=== PATIENT | female | born 1965 | race Caucasian/White ===

== ENCOUNTER → 2017-09-11 | Outpatient (CLI) | payer OTHER ==
[~2017-09-11] MED LIST: CARV25TA12 PO; ESCI20TA PO; thyroid med PO
== END ==
LOC: STAR 07:57
PROVIDERS: ATTEND Internal Medicine Critical Care Medicine
DX: Z02.9 Encounter for administrative examinations, unspecified (principal)

== ENCOUNTER 2017-09-18 07:54 | Day surgery (SDC) | payer OTHER ==
[~2017-09-18] VITALS: Ht 170.2 cm; Wt 84.0 kg
[2017-09-18] MEDS ORDERED: SODIUM CHLORIDE 0.9% 1,000 ML IV SCH (08:42)
[2017-09-18] MEDS ORDERED: MIDAZOLAM 1 MG/ML, 5ML ONE (08:49)
[2017-09-18] MEDS ORDERED: FENTANYL PF 100 MCG/2ML ONE (08:49)
[2017-09-18 09:25] LABS: BASOPHILS # (AUTO) 0.04 x10^3/uL (0-0.1); BASOPHILS % (AUTO) 1 % (0-1); EOSINOPHILS # (AUTO) 0.15 x10^3/uL (0-0.4); EOSINOPHILS % (AUTO) 4 % (1-7); LYMPHOCYTES # (AUTO) 1.41 x10^3/uL (1-3.4); LYMPHOCYTES % (AUTO) 37 % (22-44); MD NO; MEAN CORPUSCULAR HEMOGLOBIN 30.8 pg (27.0-34.8); MEAN CORPUSCULAR HGB CONC 34.4 g/dL (32.4-35.8); MEAN CORPUSCULAR VOLUME 89.5 fL (80-100); MONOCYTES # (AUTO) 0.35 x10^3/uL (0.2-0.8); MONOCYTES % (AUTO) 9 % (2-9); NEUTROPHILS # (AUTO) 1.85 x10^3/uL (1.8-6.8); NEUTROPHILS % (AUTO) 49 % (42-75); PLATELET COUNT 267 x10^3/uL (130-400); RED BLOOD COUNT 4.98 x10^6/uL (3.82-5.3); RED CELL DISTRIBUTION WIDTH 12.5 % (9.6-15.2)
[2017-09-18 09:34] LABS: INTERNATIONAL NORMALIZED RATIO 0.94 (0.93-1.1); PROTHROMBIN TIME 9.8 Seconds (9.6-11.5)
[2017-09-18] MEDS ORDERED: LIDOCAINE GEL 2%, 5ML ONE (14:00)
[2017-09-18] MEDS ORDERED: LIDOCAINE 2%, 20ML ONE (14:00)
[2017-09-18] MEDS ORDERED: LIDOCAINE 4% TOPICAL SOLUTION 50 ML ONE (14:00)
== END 2017-09-18 13:25 | disposition home or self-care (01) ==
LOC: OUT 07:54
PROVIDERS: ATTEND Internal Medicine Critical Care Medicine
DX: J40 Bronchitis, not specified as acute or chronic (principal); R91.8 Other nonspecific abnormal finding of lung field; Z88.0 Allergy status to penicillin
CPT/HCPCS: 31625; 31628; 36415; 71045; 76001; 85025; 85610; 85730; 88305; 99152; 99153; J2250; J3010; J3490; J7030

== ENCOUNTER 2019-01-29 21:49 | Emergency (ER) | payer OTHER ==
[~2019-01-29] VITALS: Ht 170.2 cm; Wt 79.1 kg
[2019-01-29 21:56] VITALS: BP 121/77
--- NOTE | 2019-01-29 22:11 | NUR ---
FIRST CONTACT WITH PT. PT WAS IN A CHAIR ON DECK OUTSIDE. CHAIR TIPPED OVER, AND PT SUSTAINED A SMALL LAC TO BACK OF OCCIPITUS. BLEEDING CONTROLLED. PT'S AOX4. RESPS EVEN AND UNLABORED. PA AT BEDSIDE TO ASSESS NOW.
[2019-01-29] MEDS ORDERED: LIDOCAINE-MPF 1%, 2ML ONE (22:13)
[2019-01-29] MEDS ORDERED: DIPH,PERTUSS(ACELL),TET VAC/PF 0.5 ML IM-VACC ONE ×2 (22:13→22:30)
--- NOTE | 2019-01-29 22:16 | NUR ---
PT TO CT NOW.
[2019-01-29] MEDS ORDERED: LIDOCAINE-MPF 1%, 5ML INFIL ONE (22:30)
--- NOTE | 2019-01-29 23:17 | NUR ---
EMT AT BEDSIDE TO IRRIGATE AT THIS TIME. PT TOLERATED WELL.
--- NOTE | 2019-01-29 23:25 | NUR ---
PT GIVEN DC INSTRUCTIONS. PT'S AOX4. RESPS EVEN AND UNLABORED. PT AMB TO DC WITH STEADY GAIT. NO ACUTE DISTRESS AT DC.
== END 2019-01-29 23:26 | disposition home or self-care (01) ==
LOC: ED 23:20
DX: S01.01XA Laceration without foreign body of scalp, initial encounter (principal); W18.30XA Fall on same level, unspecified, initial encounter; Y93.89 Activity, other specified; Y92.007 Garden or yard of unspecified non-institutional (private) residence as the place of occurrence of the external cause; Y99.8 Other external cause status
CPT/HCPCS: 12031; 70450; 90715; 99284

== ENCOUNTER 2019-02-09 16:16 | Emergency (ER) | payer OTHER ==
[~2019-02-09] VITALS: Ht 170.2 cm; Wt 79.2 kg
[2019-02-09 16:19] VITALS: BP 138/90
--- NOTE | 2019-02-09 16:24 | NUR ---
PA REMOVING 4 KAMINI FROM PT HEAD IN TRIAGE, WILL BE DCd FROM TRIAGE
== END 2019-02-09 16:29 | disposition home or self-care (01) ==
LOC: ED 16:23
DX: S01.01XD Laceration without foreign body of scalp, subsequent encounter (principal); X58.XXXD Exposure to other specified factors, subsequent encounter
CPT/HCPCS: 99281